=== PATIENT | female | born 1955 | race Asian ===

== ENCOUNTER 2016-10-06 12:45 | Outpatient (CLI) | payer OTHER ==
[2016-10-06] MEDS ORDERED: BUFFERED LIDOCAINE 10 ML SYRINGE IU ONE ×2 (14:15)
[2016-10-06] MEDS ORDERED: IOTHALAMATE MEGLUMINE 50 ML VIAL IVP ONE ×2 (14:15)
[2016-10-06] MEDS ORDERED: GADOPENTETATE DIMEGLUMINE 5 ML VIAL IVP ONE ×2 (14:15)
== END 2016-10-06 12:46 | disposition home or self-care (01) ==
DX: M75.51 Bursitis of right shoulder (principal); M19.011 Primary osteoarthritis, right shoulder; G89.29 Other chronic pain; S46.211A Strain of muscle, fascia and tendon of other parts of biceps, right arm, initial encounter
CPT/HCPCS: 23350; 73222; 77002; Q9961

== ENCOUNTER 2020-10-22 13:41 | Outpatient (CLI) | payer MEDICARE, OTHER ==
--- NOTE | 2020-10-22 16:20 | XRAY Report ---
PROCEDURE: Finger(s) LT INDICATIONS: LEFT RING FINGER INJ TECHNIQUE: AP hand, 3 views of the fourth finger(s) acquired. COMPARISON: None. FINDINGS: Bones: No fractures or dislocations. No suspicious bony lesions. Soft tissues: No suspicious soft tissue calcifications. IMPRESSION: No trauma found. Reviewed by: Stanford Shrestha MD on 10/22/2020 4:18 PM PDT Approved by: Stanford Shrestha MD on 10/22/2020 4:18 PM PDT Station ID: [id number]
== END 2020-10-22 23:59 | disposition home or self-care (01) ==
LOC: DI.N 13:41
PROVIDERS: ATTEND Family Medicine
DX: S69.92XA Unspecified injury of left wrist, hand and finger(s), initial encounter (principal)

== ENCOUNTER 2021-02-28 15:39 | Outpatient (CLI) | payer MEDICARE, OTHER | END 2021-02-28 15:40 | disposition home or self-care (01) | LOC: COV 15:39 | PROVIDERS: ATTEND Family Medicine | DX: R05 Cough (principal); R07.0 Pain in throat; R09.81 Nasal congestion; J34.89 Other specified disorders of nose and nasal sinuses; Z20.822 Contact with and (suspected) exposure to COVID-19 ==